=== PATIENT | male | born 1950 | race Caucasian/White ===

== ENCOUNTER 2017-05-05 22:15 | Emergency (ER) | payer OTHER ==
[~2017-05-05] VITALS: Ht 190.5 cm; Wt 101.2 kg
[~2017-05-05 22:15] MED LIST: ALPRAZOLAM1 M1 PO; B COMPLEX-VITA1 EACH PO; FISH OIL + D31 EACH; FISHOIL PO; GINKGO BILOBA40 M1 PO; LUNESTA3 MG PO; MELOXICAM7.5 MG PO; NAPROSYN500 MG PO; NORCO 5-325 TA1 EACH PO; VITAMIN D1000 UNI1 PO; VITCB500GO PO
[2017-05-05 22:16] VITALS: BP 145/84
== END 2017-05-05 23:07 | disposition home or self-care (01) ==
LOC: ER 22:15
DX: S61.215A Laceration without foreign body of left ring finger without damage to nail, initial encounter (principal); Z98.890 Other specified postprocedural states; W25.XXXA Contact with sharp glass, initial encounter; Y93.89 Activity, other specified; Y92.89 Other specified places as the place of occurrence of the external cause; Y99.8 Other external cause status